=== PATIENT | female | born 1955 | race Caucasian/White ===

== ENCOUNTER → 2016-09-17 | Outpatient (CLI) | payer MEDICAID ==
[~2016-09-17] MED LIST: ADVAIR DIS14 PUFF/DI INH; ADVAIR DIS14 PUFF/I1 INH; ALEVE220 MG PO; BUPROPION HCL150 M1 PO; CARAFATE1 GM PO; CELEXA40 MG PO; CHANTIX1 MG PO; CLONAZEPAM0.5 MG PO; DUONEB 3.0-0.5 M3 ML INH; FLEXERIL10 MG PO; KLONOPIN0.5 MG PO; LIPITOR40 MG PO; NORCO 325-5 MG1 TAB PO; PREDNISONE10 MG PO; PRILOSEC40 MG PO; PROAIR RESPICL90 MCG INH; PROVENTIL HFA6.7 GM INH; PROVENTIL2.5 MG/0.5 INH; REQUIP0.25 MG PO; THERA M PLUS T1 EACH PO; TRAZODONE HCL100 MG PO; TRAZODONE HCL50 MG PO; TYLENOL325 MG PO; ULTRAM50 MG PO; WELLBUTRIN SR150 MG PO; WELLBUTRIN75 MG PO; ZITHROMAX250 MG PO
== END | disposition short-term general hospital (02) ==
LOC: CLPULM 13:59
DX: J44.9 Chronic obstructive pulmonary disease, unspecified (principal); R91.1 Solitary pulmonary nodule; F32.9 Major depressive disorder, single episode, unspecified

== ENCOUNTER → 2016-09-18 | Outpatient (CLI) | payer MEDICAID | END | disposition short-term general hospital (02) | LOC: CLORTH 00:12 | DX: M25.552 Pain in left hip (principal); M79.1 Myalgia | CPT/HCPCS: 73502-LT ==

== ENCOUNTER 2016-11-04 11:29 | Emergency (ER) | payer MEDICAID ==
[~2016-11-04] VITALS: Ht 160 cm; Wt 55.8 kg
== END 2016-11-04 16:45 | disposition short-term general hospital (02) ==
LOC: ER 11:29
DX: K59.00 Constipation, unspecified (principal); J44.9 Chronic obstructive pulmonary disease, unspecified; E78.5 Hyperlipidemia, unspecified; G25.81 Restless legs syndrome; Z79.899 Other long term (current) drug therapy; Z87.891 Personal history of nicotine dependence; Z88.5 Allergy status to narcotic agent
CPT/HCPCS: J2270; J2405; Q9963; Q9967

== ENCOUNTER 2016-11-10 05:43 | Emergency (ER) | payer MEDICAID ==
[~2016-11-10] VITALS: Ht 160 cm; Wt 57.6 kg
== END 2016-11-10 08:15 | disposition short-term general hospital (02) ==
LOC: ER 05:43
DX: S22.31XA Fracture of one rib, right side, initial encounter for closed fracture (principal); X58.XXXA Exposure to other specified factors, initial encounter